=== PATIENT | male | born 1970 | race Caucasian/White ===

== ENCOUNTER → 2024-05-20 16:06 | Outpatient (REF) | payer BC, SELFPAY | LOC: HWRCS 16:06 | PROVIDERS: ATTENDING PHYSICIAN Nurse Practitioner; FAMILY PHYSICIAN Family Medicine | DX: R06.02 Shortness of breath (principal) | CPT/HCPCS: 93306 ==

== ENCOUNTER 2024-07-30 19:26 | Emergency (ER) | payer BC, SELFPAY ==
[2024-07-30 19:28] VITALS: BP 203/106
[2024-07-30 20:03] LABS: % Basophils 0.9 % (0-2); % Eosinophils 2.4 % (0-6); % Immature Granulocytes 0.4 % (0-0.5); % Lymphocytes 22.4 % (20.5-51.1); % Neutrophils 67.9 % (42.2-75.2); Absolute Basophils 0.1 10^3/uL (0-0.2); Absolute Eosinophils 0.2 10^3/uL (0-0.7); Absolute Lymphocytes 1.8 10^3/uL (1.2-3.4); Absolute Monocytes 0.5 10^3/uL (0.1-0.6); Absolute Neutrophils 5.5 10^3/uL (1.4-6.5); Hematocrit 44.7 % (39.0-52.0); Hemoglobin 15.5 g/dL (13.0-18.0); Mean Corp Hgb Conc. 34.7 g/dL (33.0-37.0); Mean Corpuscular Hgb 28.8 pg (27.0-31.0); Mean Corpuscular Volume 83.1 fL (80.0-94.0); Mean Platelet Volume 9.5 fL (7.4-10.4); Nucleated Red Blood Cells % 0 % (-); Platelet Count 229 10^3/uL (130-400); Red Blood Cell Count 5.38 10^6/uL (4.70-6.10); Red Cell Dist. Width 12.4 % (11.5-14.5)
[2024-07-30 20:15] LABS: ALT (SGPT) 24 U/L (0-50); AST (SGOT) 22 U/L (17-59); Albumin 4.3 g/dl (3.5-5.0); Alkaline Phosphatase 48 U/L (38-126); Blood Urea Nitrogen 26 mg/dl (9-20); Calcium 9.4 mg/dl (8.4-10.2); Carbon Dioxide 30 mmol/L (22-30); Chloride 103 mmol/L (98-107); Glucose 184 mg/dl (70-99); Potassium 4.2 mmol/L (3.5-5.1); Sodium 139 mmol/L (135-145); Total Bilirubin 1.4 mg/dl (0.2-1.3); Total Protein 6.8 g/dl (6.3-8.2); eGFR > 60.00
[2024-07-30 20:27] LABS: Troponin I < 0.012 ng/ml
== END 2024-07-30 22:25 ==
LOC: EMR 19:26
PROVIDERS: Emergency Medicine
DX: M54.9 Dorsalgia, unspecified (principal)
CPT/HCPCS: 80053; 84484; 85025; 93005

== ENCOUNTER 2024-09-30 10:31 | Emergency (ER) | payer BC, SELFPAY ==
[2024-09-30] VITALS (10 sets, daily range): BP systolic 150–192; BP diastolic 90–138
[2024-09-30 11:51] LABS: % Basophils 0.9 % (0-2); % Eosinophils 2.7 % (0-6); % Immature Granulocytes 0.3 % (0-0.5); % Lymphocytes 21.1 % (20.5-51.1); % Monocytes 5.8 % (1.7-9.3); % Neutrophils 69.2 % (42.2-75.2); Absolute Basophils 0.1 10^3/uL (0-0.2); Absolute Eosinophils 0.2 10^3/uL (0-0.7); Absolute Lymphocytes 1.7 10^3/uL (1.2-3.4); Absolute Monocytes 0.5 10^3/uL (0.1-0.6); Absolute Neutrophils 5.5 10^3/uL (1.4-6.5); Hematocrit 41.7 % (39.0-52.0); Hemoglobin 14.9 g/dL (13.0-18.0); Mean Corp Hgb Conc. 35.7 g/dL (33.0-37.0); Mean Corpuscular Hgb 29.2 pg (27.0-31.0); Mean Corpuscular Volume 81.8 fL (80.0-94.0); Mean Platelet Volume 9.4 fL (7.4-10.4); Nucleated Red Blood Cells % 0 % (-); Platelet Count 270 10^3/uL (130-400); Red Cell Dist. Width 12.7 % (11.5-14.5); White Blood Cell Count 7.9 10^3/uL (4.8-10.8)
[2024-09-30 12:07] LABS: ALT (SGPT) 27 U/L (0-50); AST (SGOT) 22 U/L (17-59); Albumin 4.2 g/dl (3.5-5.0); Alkaline Phosphatase 41 U/L (38-126); Blood Urea Nitrogen 17 mg/dl (9-20); Calcium 9.7 mg/dl (8.4-10.2); Carbon Dioxide 28 mmol/L (22-30); Chloride 107 mmol/L (98-107); Glucose 104 mg/dl (70-99); Lipase 91 U/L (23-300); Potassium 3.9 mmol/L (3.5-5.1); Sodium 143 mmol/L (135-145); Total Bilirubin 1.2 mg/dl (0.2-1.3); Total Protein 6.8 g/dl (6.3-8.2); eGFR > 60.00
[2024-09-30 12:15] LABS: Troponin I < 0.012 ng/ml
[2024-09-30 13:15] LABS: Urine Albumin 1+ (Neg - Trace); Urine Bilirubin Negative (Negative); Urine Character Clear (Clear); Urine Color Yellow; Urine Glucose Negative (Negative); Urine Ketone Negative (Negative); Urine Leukocyte Negative (Negative); Urine Nitrite Negative (Negative); Urine Occult Blood Negative (Negative); Urine Specific Gravity 1.015 (<1.030); Urine Urobilinogen 2+ (Neg - 1+)
[2024-09-30 14:20] LABS: Urine Mucus Many
[2024-09-30 14:22] LABS: C-Reactive Protein < 5.00 mg/L (0.0-10.00)
[2024-09-30 14:23] LABS: Urine Squamous Cell 0-2 /LPF (Few)
[2024-09-30 14:24] LABS: Urine Amorphous Seen; Urine Urothelial Cell 0-2 /LPF (FEW)
--- NOTE | 2024-09-30 14:24 | ED.GENMED ---
History of Present Illness
General
Chief Complaint: Headache
Time Seen by Provider: 09/30/24 12:17
History of Present Illness
History of Present Illness:
54-year-old male presents to the emergency department for evaluation of a myriad of symptoms ongoing for the past week or more. He reports several days of nosebleeds that have since stopped, intermittent headaches that seem to originate at the base
of the neck and radiate up toward the right side of the head, frequent blurry vision, and diffuse shoulder and knee pain. He is not having any chest pain or shortness of breath. No symptoms that are comparable to prior [facility]. He saw his primary care
physician who referred him into the emergency department for consideration of a stroke workup.
Past History
Past History
ED Past Medical History: CAD, HTN, Hypercholesterolemia and VA
ED Past Surgical History: Cardiac (stent)
Social History
Tobacco: Former smoker
Alcohol: Occasional
Drug: None
Personal:
Living: with family
Employment: Employed
Family History
Family History: Other
Review of Systems
Review of Systems
Allergies reviewed?: Yes
All Other Systems: ROS reviewed and negative except as documented in HPI and ROS
Phy Exam
Physical Exam
Physical Exam:
GEN: Well appearing, NAD, WDWN
HEENT: Oral mucosa moist, no scleral icterus, no nasal congestion
Cardiac: Regular rate and rhythm, no murmurs
Lung: No respiratory distress, no tachypnea, lungs clear to auscultation bilaterally
MSK: No gross deformity or injuries
Skin: Good color, no pallor or jaundice, no rashes
Neuro: AO x3; CN II-XII grossly intact. BUE strength 5/5 in all live, sensation intact and symmetric. BLE strength 5/5 in all live, sensation intact and symmetric
Psych: Calm, cooperative
Course
Orders/Labs/Results
Orders:
Orders
09/30/24 10:39
Electrocardiogram (*1) Urgent
Reason for Study: Hypertension, Benign
09/30/24 10:40
EKG- Treatment ONCE
09/30/24 11:39
C-Reactive Protein Urgent
Comment: ADD
Complete Blood Count/With Diff Urgent
Comprehensive Metabolic Panel Urgent
Folate Urgent
Comment: ADD ON
Lipase Urgent
Lyme Progressive Urgent
Comment: ADD
TSH Urgent
Comment: ADD ON
Troponin I Urgent
Vitamin B12 Urgent
Comment: ADD ON
09/30/24 12:48
Add On- LAB Urgent
Tests Added?: CRP, Lyme progressive
09/30/24 12:50
Urinalysis Reflex To Culture Urgent
Date Specimen was Collected: 09/30/24
Time Specimen was Collected: 10:40
Urine Microscopic Reflex Cult Urgent
09/30/24 14:36
Carvedilol [Coreg] 6.25 mg PO NOW STA
NIFEdipine EXTENDED RELEASE [Procardia Xl (Extended Release)] 30 mg PO NOW STA
09/30/24 15:18
CT Head W/o Iv Contrast Urgent
Comment:
Reason For Exam: headaches, blurry vision
09/30/24 15:56
CT Neck Angio W/wo Iv Contrast Urgent
Comment:
Reason For Exam: stroke symptoms
09/30/24 16:05
Add On- LAB Urgent
Tests Added?: b12, folate, TSH
Abnormal Lab Results
09/30/24 09/30/24
11:39 12:50
Glucose 104 H mg/dl
(70-99)
Urine Urobilinogen 2+ A
(Neg - 1+)
Urine Bacteria (Reflex) Few A
(Negative)
Urine Albumin (Reflex) 1+ A
(Neg - Trace)
09/30/24 11:39
09/30/24 11:39
Vital Signs
Initial and Last Documented VS:
Initial Vital Signs
Temp Pulse Resp BP Pulse Ox
98.2 F 62 18 183/104 98
09/30/24 10:36 09/30/24 10:36 09/30/24 10:36 09/30/24 10:36 09/30/24 10:36
Last Documented Vital Signs
Temp Pulse Resp BP Pulse Ox
98.2 F 65 10 150/97 99
09/30/24 10:36 09/30/24 17:02 09/30/24 17:02 09/30/24 17:02 09/30/24 17:02
MDM/Problems Addressed
MDM/Problems Addressed:
Etiology of symptoms is not clear at this time. I did discuss case with neurology who recommended the CT angiogram of the neck due to old right lacunar infarct which revealed clean vasculature. He is maximized on stroke preventive medical therapy
at this point. Lyme disease test pending. Will recommend close primary care follow-up
*Critical Care Note
Total Time (30-74mins, 75-104mins- exclusive of procedures): Not Applicable
ED Attending Note
-
Portions of this chart may have been created with voice recognition software.� Occasional wrong word or��sound alike� substitutions may have occurred due to the inherent limitations of voice recognition software.
Discharge Plan
Departure
Patient Disposition: Home (Routine Discharge)
Date of Disposition: 09/30/24
Time of Disposition: 17:21
Patient with high blood pressure during this ER visit?: No
Discharge Problem:
Polyarthralgia, Blurred vision
Instructions: Headache, Adult (DC)
Prescriptions:
No Action
cetirizine [Zyrtec] 10 mg Tablet
10 mg PO DAILY PRN (Reason: allergies)
ticagrelor [Brilinta] 90 mg Tablet
90 mg PO BID Qty: 60 11RF
aspirin 81 mg Tablet,Chewable
81 mg PO DAILY Qty: 0 0RF
Rx Instructions:
over the counter medicine
nifedipine 30 mg Tablet Extended Release
30 mg PO DAILY Qty: 30 3RF
nitroglycerin 0.4 mg Tablet, Sublingual
0.4 mg sublingual [id number] PRN (Reason: ANGINA) Qty: 25 3RF
fenofibrate nanocrystallized [Tricor] 145 mg tablet
145 mg PO DAILY Qty: 30 3RF
carvedilol 12.5 mg tablet
6.25 mg PO BID
Repatha SureClick 140 mg/mL Pen Injector
140 mg SC Q2W
Referrals:
NONE,* [Family Provider] -
Activity Restrictions/Additional Instructions:
At this time the cause of your symptoms is not clear however a Lyme disease test is pending, if this is positive we will start you on a course of antibiotics
If this test is negative please discuss further outpatient testing with your primary care provider such as a brain MRI
You do not have any symptoms at this time that would warrant further workup of a coronary artery occlusion
Interventions
Interventions:
*General Assessment Last Done: 09/30/24 10:36
*Neglect/Abuse Screening Last Done: 09/30/24 10:36
*ED COVID-19 Vaccine History Last Done: 09/30/24 10:36
ED- Neurological Assessment Last Done: 09/30/24 11:22
Discharge Date and Time
Print Language: SLOVENIAN
[2024-09-30 14:25] LABS: Urine Red Blood Cell 0-2 /HPF (0-2)
[2024-09-30 14:26] LABS: Urine Bacteria Few (Negative)
[2024-09-30] MEDS: PROCARDIA XL (EXTENDED RELEASE) 30 MG PO (14:58)
[2024-09-30] MEDS: COREG 6.25 MG PO (14:58)
[2024-09-30 17:19] LABS: TSH 1.06 uIU/ml (0.47-4.68)
[2024-09-30 17:54] LABS: Folate 7.9 ng/ml (2.76-20); Vitamin B12 753 pg/ml (239-931)
== END 2024-09-30 17:59 | disposition home or self-care (01) ==
LOC: EMR 10:31
PROVIDERS: Emergency Medicine; EMERGENCY PHYSICIAN Emergency Medicine
DX: M25.50 Pain in unspecified joint (principal); H53.8 Other visual disturbances; I25.10 Atherosclerotic heart disease of native coronary artery without angina pectoris; I10 Essential (primary) hypertension; E78.00 Pure hypercholesterolemia, unspecified; I25.2 Old myocardial infarction; Z86.73 Personal history of transient ischemic attack (TIA), and cerebral infarction without residual deficits; Z87.891 Personal history of nicotine dependence; Z95.5 Presence of coronary angioplasty implant and graft
CPT/HCPCS: 99284; 70450; 70498; 80053; 81003; 81015; 82607; 82746; 83690; 84443; 84484; 85025; 86140; 86618; 93005; Q9967